=== PATIENT | female | born 1985 | race African-American/Black ===

== ENCOUNTER 2017-11-16 14:23 | Emergency (ER) | payer OTHER, SELFPAY ==
[2017-11-16 15:38] LABS: #Basophils 0.1 thou/uL (0.0-0.2); #Lymphocytes 2.4 thou/uL (1.20-3.40); #Monocytes 0.6 thou/uL (0.11-0.59); #Neutrophils 3.5 thou/uL (1.40-6.50); %Basophils 1.6 % (0.0-1.0); %Eosinophils 0.5 % (0.0-10.0); %Lymphocytes 36.2 % (21.0-51.0); %Monocytes 8.6 % (0.0-10.0); Hemoglobin 10.8 g/dL (12.0-16.0); Mean Corpuscular HGB CONC 32.8 g/dL (32.0-36.0); Mean Corpuscular Hemoglobin 25.8 pg (27.0-31.0); Mean Corpuscular Volume 78.4 fL (78.0-98.0); Mean Platelet Volume 7.5 fL (7.4-10.4); Platelet Count 399 thou/uL (130-400); White Blood Cell (WBC) Count 6.6 thou/uL (4.8-10.8)
[2017-11-16 16:05] LABS: ALT (SGPT) 9 U/L (8-55); AST (SGOT) 16 U/L (5-34); Albumin 4.5 g/dL (3.5-5.0); Alkaline Phosphatase 57 U/L (40-150); Anion Gap 12 mmol/L (10-20); BUN (Urea Nitrogen) 14 mg/dL (7.0-18.7); Bilirubin, Total 0.9 mg/dL (0.2-1.2); Calc. Creatinine Clearance 0 mL/min (70-130); Calcium 9.7 mg/dL (7.8-10.44); Carbon Dioxide 25 mmol/L (22-29); Chloride 104 mmol/L (98-107); Estimated GFR-MDRD Greater than 90; Globulin 3.9 g/dL (2.4-3.5); Glucose 86 mg/dL (70-105); Potassium 3.8 mmol/L (3.5-5.1); Protein, Total 8.4 g/dL (6.0-8.3); Sodium 137 mmol/L (136-145)
[2017-11-16] MEDS ORDERED: Ibuprofen 800 MG TAB ONE (16:19)
[2017-11-16 16:42] LABS: Bilirubin Negative (Negative); Blood, Urine Large (Negative); Clarity CLOUDY (Clear); Glucose, Urine (Dipstick) Negative (Negative); Leukocyte Small (Negative); Nitrite Negative (Negative); Protein, Urine (Dipstick) Negative (Neg-Trace)
[2017-11-16 16:44] LABS: Bacteria/HPF 4+ HPF (None Seen); Hyaline Casts/LPF 0-3 HYALINE CAST LPF (0-3 Hyaline); Pathc Cast-AUWi Flag 0.58 (0-2.49); RBC/HPF GREATER THAN 50-TNTC HPF (0-3); WBC/HPF 0-3 HPF (0-3)
--- NOTE | 2017-11-16 18:07 | ULT ---
PELVIC ULTRASOUND: HISTORY: The patient is reportedly and is bleeding. No hCG available at the time of this exam. FINDINGS: Real-time imaging of the pelvis was obtained transabdominally and showed a uterus measuring 4.7 x 5.9 x 7.8 cm. The endometrium is thickened at 1.6 cm. The right and left adnexa show small follicles. No free fluid. On Doppler evaluation with spectral analysis, normal flow is shown to both adnexa. IMPRESSION: No signs of intrauterine or ectopic . This does not exclude an ectopic or early intrauterin e. The endometrium does appear thickened. POS: [facility]
== END 2017-11-16 17:00 | disposition home or self-care (01) ==
LOC: ERS 14:23
DX: N30.00 Acute cystitis without hematuria (principal); R51 Headache; D64.9 Anemia, unspecified; F31.9 Bipolar disorder, unspecified; Z85.42 Personal history of malignant neoplasm of other parts of uterus
CPT/HCPCS: 36415; 76856; 80053; 81003; 81015; 84702; 85025; 87077; 87086; 87186

== ENCOUNTER 2018-02-10 19:05 | Emergency (ER) | payer SELFPAY ==
[2018-02-10 20:10] LABS: Pregnancy Test - Urine (BHCG) Negative (Negative); Pregu Control Background? CLEAR/WHITE (CLR/WHITE); Pregu Control Bar Appear? YES (CONTROL BAR); Specific Gravity 1.013 (1.002-1.036)
[2018-02-10] MEDS ORDERED: Ketorolac Tromethamine 30 MG/ML VIAL ONE (20:48)
--- NOTE | 2018-02-10 20:48 | ULT ---
LIMITED RIGHT BREAST ULTRASOUND: 02/10/18 PROVIDED CLINICAL HISTORY: Right breast palpable abnormality. FINDINGS: Limited sonographic interrogation of the right breast in the 1 o'clock position in the region of palp able concern was performed. There is no evidence for a cystic or solid mass in the region of palpable concern. IMPRESSION: No sonographic abnormality is evident in the region of palpable concern. Negative sonographic finding s should not preclude further evaluation of a clinically suspicious area. Followup diagnostic mammogr aphy should be considered. POS: [facility]
== END 2018-02-10 21:28 | disposition home or self-care (01) ==
LOC: ERS 19:05
DX: N64.4 Mastodynia (principal); F31.9 Bipolar disorder, unspecified
CPT/HCPCS: 76641; 81025; 96372; J1885

== ENCOUNTER 2018-04-07 11:56 | Emergency (ER) | payer SELFPAY ==
[~2018-04-07 11:56] MED LIST: ISOVUE-370 76%-LOCM 1 ML ONE
[2018-04-07] MEDS ORDERED: Acetaminophen 500 MG TAB ONE (13:03)
[2018-04-07] MEDS ORDERED: Metoclopramide HCl 10 MG/2 ML VIAL ONE (13:03)
[2018-04-07] MEDS ORDERED: diphenhydrAMINE 50 MG/ML VIAL ONE (13:03)
[2018-04-07 13:27] LABS: #Basophils 0.1 thou/uL (0.0-0.2); #Lymphocytes 2.6 thou/uL (1.20-3.40); #Monocytes 0.4 thou/uL (0.11-0.59); #Neutrophils 2.6 thou/uL (1.40-6.50); %Basophils 1.8 % (0.0-1.0); %Eosinophils 0.6 % (0.0-10.0); %Lymphocytes 45.3 % (21.0-51.0); %Neutrophils 45.3 % (42.0-75.0); Hemoglobin 9.2 g/dL (12.0-16.0); Mean Corpuscular HGB CONC 31.8 g/dL (32.0-36.0); Mean Corpuscular Hemoglobin 23.9 pg (27.0-31.0); Mean Corpuscular Volume 75.4 fL (78.0-98.0); Mean Platelet Volume 7.3 fL (7.4-10.4); Platelet Count 353 thou/uL (130-400); RBC Distribution Width 16.3 % (11.5-14.5); Red Blood Cell (RBC) Count 3.84 mill/uL (4.20-5.40); White Blood Cell (WBC) Count 5.8 thou/uL (4.8-10.8)
[2018-04-07 13:46] LABS: ALT (SGPT) 11 U/L (8-55); AST (SGOT) 18 U/L (5-34); Albumin 4.3 g/dL (3.5-5.0); Alkaline Phosphatase 44 U/L (40-150); Anion Gap 8 mmol/L (10-20); BUN (Urea Nitrogen) 10 mg/dL (7.0-18.7); Bilirubin, Total 0.7 mg/dL (0.2-1.2); CRP (Inflammatory) Less than 0.50 mg/dL (= or < 0.5); Calc. Creatinine Clearance 0 mL/min (70-130); Calcium 9.7 mg/dL (7.8-10.44); Carbon Dioxide 30 mmol/L (22-29); Chloride 103 mmol/L (98-107); Estimated GFR-MDRD Greater than 90; Globulin 3.4 g/dL (2.4-3.5); Glucose 94 mg/dL (70-105); Potassium 3.5 mmol/L (3.5-5.1); Protein, Total 7.7 g/dL (6.0-8.3); Sodium 137 mmol/L (136-145)
[2018-04-07] MEDS ORDERED: Dexamethasone 10 MG/ML VIAL ONE (14:53)
--- NOTE | 2018-04-07 14:58 | CT ---
CT BRAIN WITHOUT CONTRAST CT ANGIOGRAM HEAD WITH CONTRAST: Date: 04/07/18 HISTORY: Headaches. TIA. COMPARISON: none. FINDINGS: CT BRAIN: No acute hemorrhage or infarct. No midline shift or mass effect. Ventricular size and extra-axial CSF spaces are normal. Calvarium is intact. Paranasal sinuses and mastoids are clear. IMPRESSION: Normal CT examination of the brain. CT ANGIO HEAD: CT angiogram of head was performed after the intravenous administration of contrast. 3D rendering pro vided. [place] is patent. No stenosis, thrombosis, nor aneurysmal formation. Exam is slightly limit ed due to the delayed phase of contrast for which it was performed. IMPRESSION: Normal CT angiogram of head. POS: [facility]
[2018-04-07 15:27] LABS: BHCG - Serum Negative (NEGATIVE); Pregs Control Background? CLEAR/WHITE (CLR/WHITE); Pregs Control Bar Appear? YES (CONTROL BAR)
== END 2018-04-07 15:41 | disposition home or self-care (01) ==
LOC: ERS 11:56
DX: G43.909 Migraine, unspecified, not intractable, without status migrainosus (principal); D64.9 Anemia, unspecified; F32.9 Major depressive disorder, single episode, unspecified; Z79.899 Other long term (current) drug therapy
CPT/HCPCS: 36415; 70496; 80053; 84703; 85025; 85652; 86140; 96365; 96375; J1100; J1200; J2765; Q9966

== ENCOUNTER 2018-06-06 09:00 | Emergency (ER) | payer SELFPAY ==
[2018-06-06] MEDS ORDERED: Ketorolac Tromethamine 60 MG/2 ML VIAL ONE (09:57)
[2018-06-06] MEDS ORDERED: Acetaminophen 500 MG TAB ONE (09:57)
[2018-06-06] MEDS ORDERED: Dexamethasone 10 MG/ML VIAL ONE (09:57)
== END 2018-06-06 10:25 | disposition home or self-care (01) ==
LOC: ERS 09:00
DX: M62.838 Other muscle spasm (principal); G43.909 Migraine, unspecified, not intractable, without status migrainosus; D64.9 Anemia, unspecified; F32.9 Major depressive disorder, single episode, unspecified
CPT/HCPCS: 96372; J1100; J1885

== ENCOUNTER 2018-06-29 17:45 | Emergency (ER) | payer SELFPAY ==
[2018-06-29] MEDS ORDERED: Diazepam 5 MG TAB ONE (18:22)
[2018-06-29] MEDS ORDERED: Ibuprofen 800 MG TAB ONE (18:22)
--- NOTE | 2018-06-29 18:35 | RAD ---
XR Shoulder Lt 3 View STANDARD History: [Injury] Comparison: Radiograph 2018 Findings: There is no acute fracture or malalignment. Visualized ribs are normal. Soft tissues are un remarkable. Impression: Normal examination of the left shoulder.
== END 2018-06-29 18:55 | disposition home or self-care (01) ==
LOC: ERS 17:45
DX: S40.012A Contusion of left shoulder, initial encounter (principal); G43.909 Migraine, unspecified, not intractable, without status migrainosus; F32.9 Major depressive disorder, single episode, unspecified; D64.9 Anemia, unspecified; V89.2XXA Person injured in unspecified motor-vehicle accident, traffic, initial encounter

== ENCOUNTER 2018-09-01 19:58 | Emergency (ER) | payer OTHER, SELFPAY ==
[2018-09-01] MEDS ORDERED: diphenhydrAMINE 25 MG CAP ONE (20:29)
[2018-09-01] MEDS ORDERED: Metoclopramide HCl 10 MG/2 ML VIAL ONE (20:30)
[2018-09-01] MEDS ORDERED: diphenhydrAMINE 50 MG/ML VIAL ONE (20:31)
== END 2018-09-01 22:00 | disposition home or self-care (01) ==
LOC: ERS 19:58
DX: G43.909 Migraine, unspecified, not intractable, without status migrainosus (principal); F32.9 Major depressive disorder, single episode, unspecified
CPT/HCPCS: 96365; 96375; J1200; J2765; Q0163

== ENCOUNTER 2018-10-09 10:14 | Emergency (ER) | payer SELFPAY ==
[2018-10-09 11:10] LABS: #Neutrophils 3.1 thou/uL (1.40-6.50); %Basophils 0.9 % (0.0-1.0); %Eosinophils 0.4 % (0.0-10.0); %Monocytes 6.5 % (0.0-10.0); %Neutrophils 52.2 % (42.0-75.0); Hemoglobin 8.8 g/dL (12.0-16.0); Mean Corpuscular Volume 69.5 fL (78.0-98.0); Mean Platelet Volume 8.4 fL (7.4-10.4); Platelet Count 314 thou/uL (130-400); RBC Distribution Width 15.9 % (11.5-14.5); Red Blood Cell (RBC) Count 3.82 mill/uL (4.20-5.40)
[2018-10-09 11:11] LABS: #Basophils 0.1 thou/uL (0.0-0.2); #Lymphocytes 2.4 thou/uL (1.20-3.40); #Monocytes 0.4 thou/uL (0.11-0.59)
[2018-10-09 11:17] LABS: ALT (SGPT) 7 U/L (8-55); AST (SGOT) 14 U/L (5-34); Albumin 4.2 g/dL (3.5-5.0); Alkaline Phosphatase 50 U/L (40-150); Anion Gap 12 mmol/L (10-20); BUN (Urea Nitrogen) 8 mg/dL (7.0-18.7); Bilirubin, Total 0.7 mg/dL (0.2-1.2); Calc. Creatinine Clearance 0 mL/min (70-130); Calcium 9.6 mg/dL (7.8-10.44); Carbon Dioxide 22 mmol/L (22-29); Chloride 105 mmol/L (98-107); Estimated GFR-MDRD Greater than 90; Glucose 96 mg/dL (70-105); Lipase 28 U/L (8-78); Potassium 3.6 mmol/L (3.5-5.1); Protein, Total 7.2 g/dL (6.0-8.3); Sodium 135 mmol/L (136-145)
[2018-10-09 11:39] LABS: Eosinophils 1 % (0-10); Hypochromia SLIGHT = 6-15 cells (100X) (0-5/hpf); Lymphocytes 46 % (21-51); MDiff Complete? YES; Microcytosis MODERATE=15-30 cells (100X) (0-5/hpf); Monocytes 6 % (0-10); Neutrophil 47 % (42-75); Platelet Morphology Comment Appears Adequate; Polychromasia SLIGHT = 2-3 cells (100X) (0-2/hpf)
[2018-10-09 12:00] LABS: Bilirubin Negative (Negative); Blood, Urine Negative (Negative); Clarity Clear (Clear); Glucose, Urine (Dipstick) Normal (Negative); Leukocyte Negative Leu/uL (Negative); Nitrite Negative (Negative); Protein, Urine (Dipstick) Negative (Neg-Trace); Urobilinogen Normal mg/dL (Less than 2)
[2018-10-09 12:04] LABS: Pregnancy Test - Urine (BHCG) Negative (Negative); Pregu Control Background? CLEAR/WHITE (CLR/WHITE); Pregu Control Bar Appear? YES (CONTROL BAR); Specific Gravity 1.007 (1.002-1.036)
[2018-10-09] MEDS ORDERED: Magnesium Citrate 300 ML BOT ONE (12:08)
== END 2018-10-09 12:24 | disposition home or self-care (01) ==
LOC: ERS 10:14
DX: K59.00 Constipation, unspecified (principal); D64.9 Anemia, unspecified; G43.909 Migraine, unspecified, not intractable, without status migrainosus; F32.9 Major depressive disorder, single episode, unspecified
CPT/HCPCS: 36415; 80053; 81003; 81025; 83690; 85025; 99284

== ENCOUNTER 2018-10-13 09:52 | Emergency (ER) | payer SELFPAY ==
[2018-10-13 11:35] LABS: Hemoglobin 9.9 g/dL (12.0-16.0); Mean Corpuscular HGB CONC 32.1 g/dL (32.0-36.0); Mean Corpuscular Volume 71.6 fL (78.0-98.0); Mean Platelet Volume 8.6 fL (7.4-10.4); Platelet Count 370 thou/uL (130-400); RBC Distribution Width 16.6 % (11.5-14.5); Red Blood Cell (RBC) Count 4.32 mill/uL (4.20-5.40); White Blood Cell (WBC) Count 6.4 thou/uL (4.8-10.8)
[2018-10-13 11:57] LABS: BHCG - Serum Negative (NEGATIVE); Pregs Control Background? CLEAR/WHITE (CLR/WHITE); Pregs Control Bar Appear? YES (CONTROL BAR)
[2018-10-13 11:57] LABS: Band 2 % (5-11); Eosinophils 1 % (0-10); Lymphocytes 37 % (21-51); MDiff Complete? YES; Monocytes 5 % (0-10); Neutrophil 55 % (42-75)
[2018-10-13 12:02] LABS: ALT (SGPT) 9 U/L (8-55); AST (SGOT) 22 U/L (5-34); Albumin 4.2 g/dL (3.5-5.0); Alkaline Phosphatase 53 U/L (40-150); Anion Gap 13 mmol/L (10-20); BUN (Urea Nitrogen) 8 mg/dL (7.0-18.7); Bilirubin, Total 0.3 mg/dL (0.2-1.2); Calc. Creatinine Clearance 0 mL/min (70-130); Calcium 9.5 mg/dL (7.8-10.44); Carbon Dioxide 21 mmol/L (22-29); Chloride 105 mmol/L (98-107); Estimated GFR-MDRD Greater than 90; Globulin 3.8 g/dL (2.4-3.5); Glucose 95 mg/dL (70-105); Potassium 3.8 mmol/L (3.5-5.1); Sodium 135 mmol/L (136-145)
--- NOTE | 2018-10-13 12:19 | CT ---
CT OF THE ABDOMEN AND PELVIS WITHOUT IV CONTRAST INDICATION: Abdominal Pain COMPARISON: None FINDINGS: The lack of IV contrast limits evaluation of the solid organs of the abdomen and pelvis. ABDOMEN: Lung bases: Clear Liver: No focal lesion. Gallbladder: Normal appearing. Pancreas: Normal. Adrenal glands: Normal. Spleen: Normal. Kidneys: Normal. Retroperitoneum of the upper abdomen: No lymphadenopathy or free fluid is identified. Additional findings: None. Pelvis: Small and large bowel: Normal Bladder: Normal. Rectal and perirectal soft tissues:Normal. Reproductive structures: There is some mild thickening of the endometrial stripe which may be related to phase of menstruation. Recommend correlation. Free fluid in pelvis: No free fluid is evident. Lymphadenopathy pelvis: No lymphadenopathy is evident. Osseous structures: No acute osseous abnormality. No destructive osteolytic or osteoblastic lesion i s identified. IMPRESSION: 1. No acute abnormality within the limitations of this noncontrast exam. No renal or ureteral calculu s demonstrated.
== END 2018-10-13 12:57 | disposition home or self-care (01) ==
LOC: ERS 09:52
DX: K64.9 Unspecified hemorrhoids (principal); K62.5 Hemorrhage of anus and rectum
CPT/HCPCS: 36415; 74176; 80053; 84703; 85025

== ENCOUNTER 2018-11-18 09:51 | Emergency (ER) | payer MEDICAID | END 2018-11-18 10:47 | disposition home or self-care (01) | LOC: ERS 09:51 | DX: O99.89 Other specified diseases and conditions complicating pregnancy, childbirth and the puerperium (principal); H72.91 Unspecified perforation of tympanic membrane, right ear; O99.351 Diseases of the nervous system complicating pregnancy, first trimester; G43.909 Migraine, unspecified, not intractable, without status migrainosus; O99.011 Anemia complicating pregnancy, first trimester; D64.9 Anemia, unspecified; O99.341 Other mental disorders complicating pregnancy, first trimester; F32.9 Major depressive disorder, single episode, unspecified; Z85.42 Personal history of malignant neoplasm of other parts of uterus; Z3A.01 Less than 8 weeks gestation of pregnancy | CPT/HCPCS: 99282 ==

== ENCOUNTER 2018-12-23 07:10 | Day surgery (SDC) | payer OTHER ==
[2018-12-22 15:46] VITALS: BMI 20.3
[2018-12-23] MEDS ORDERED: Ciprofloxacin 0.2% Otic 1 DROP CON ONE ×2 (10:26→11:20)
[2018-12-23] MEDS ORDERED: Bacitracin Zinc Ointment 30 gm TUBE ONE (10:26)
[2018-12-23] MEDS ORDERED: Lidocaine 1% w/Epinephrine 1:100K 20 ML VIAL ONE (10:26)
[2018-12-23] MEDS ORDERED: Fentanyl 100 MCG/2 ML VIAL ONE (10:29)
[2018-12-23] MEDS ORDERED: Midazolam HCl 2 mg/2 ml Vial ONE (10:29)
[2018-12-23] MEDS ORDERED: Clindamycin/D5W 900 mg/50 ml Premix Bag ONE (10:52)
[2018-12-23] MEDS ORDERED: Gelfilm 1 EA Packet ONE (11:15)
[2018-12-23] MEDS ORDERED: Rocuronium Bromide 10 MG/ML (10ML VIAL) ONE (11:30)
[2018-12-23] MEDS ORDERED: Ondansetron PF 4 MG/2 ML Vial ONE (11:30)
[2018-12-23] MEDS ORDERED: Succinylcholine Chloride 20 MG/ML 10 ml SYRINGE FS ONE (11:30)
[2018-12-23] MEDS ORDERED: PROPOFOL 200 MG/20 ML VIAL ONE (11:30)
[2018-12-23] MEDS ORDERED: Dexamethasone 20 MG/5 ML VIAL ONE (11:30)
[2018-12-23] MEDS ORDERED: Lidocaine 1% PF 5 ML VIAL ONE (11:30)
[2018-12-23] MEDS ORDERED: Hydrocodone-Acetamin 15 ML UDCUP ONE (13:13)
--- NOTE | 2018-12-24 12:57 | OP ---
DATE OF PROCEDURE: 12/23/2018 PREOPERATIVE DIAGNOSES: 1. Right tympanic membrane perforation. 2. Right conductive hearing loss. POSTOPERATIVE DIAGNOSES: 1. Right tympanic membrane perforation. 2. Right conductive hearing loss. PROCEDURE PERFORMED: Right tympanoplasty without ossicular chain reconstruction. ESTIMATED BLOOD LOSS: 10 mL. COMPLICATIONS: None. ANESTHESIA: GETA. DESCRIPTION OF PROCEDURE: The patient was taken to the operating room and placed supine on the table. General endotracheal anesthesia was obtained by the anesthesia staff. Tube was secured in the left lower lip. A shoulder roll was placed. The head was gently turned exposing the right ear. Following this, 8 mL of 1% lidocaine with 1:100,000 epinephrine was injected into the postauricular sulcus and the external auditory canal as well as the temporalis muscle and overlying tissues. Following this, the patient was prepped and draped in standard surgical fashion. Operating microscope was brought into the field, and the tympanic membrane perforation was visualized first. The middle ear mucosa was noted to be healthy today. There was a near complete perforation of the tympanic membrane present. The edges of the perforation were further rimmed using a Grady needle and cupped forceps. The annulus was markedly atrophic as well. Following this, postauricular incision was made and dissection was carried overlying the temporalis fascia. A 2 x 2 cm piece of temporalis fascia was harvested and was cleaned of excessive fat muscle debris and was depressed and allowed to dry for approximately 15 minutes. Following this, a tympanomastoid flap were elevated using the Bovie electrocautery and the periosteal elevator and [place] elevator. Dissection was then carried down the external auditory canal medially, and then an incision was made in the external auditory canal again approximately 1 cm from the annulus. Following this, the annulus was identified and was elevated using a round knife and Grady needle. The chorda tympani nerve was retracted above and was from the annulus. Following this, small piece of Gelfilm was placed onto the middle ear promontory. Palpation of the ossicular chain showed movement of the ossicular chain, and Gelfoam packing was placed medially to the tympanic membrane. The temporalis fascia was trimmed to the appropriate size and then was placed in a medial onlay fashion covering the tympanic membrane perforation. Following this, the temporalis fascia graft and the tympanic membrane were returned to its normal anatomic position and Gelfoam was packed lateral to the graft and tympanic membrane. Following this, the tympanomeatal flap was reapproximated to its normal position. Monocryl stitches were used to close the mastoid fascia as well as the subcutaneous fascia and Dermabond was placed on the skin. The cotton ball was placed in the external auditory canal, and Gelfoam packs were placed overlying the tympanomeatal flap. The patient tolerated the procedure well. Job ID: [id number]
== END 2018-12-23 14:15 | disposition home or self-care (01) ==
LOC: SDC 07:10
PROVIDERS: ATTEND Otolaryngology Plastic Surgery within the Head & Neck
PROC: 09U707Z Supplement Right Tympanic Membrane with Autologous Tissue Substitute, Open Approach (ICD-10-PCS; principal; 2018-12-23)
DX: H72.91 Unspecified perforation of tympanic membrane, right ear (principal); H90.11 Conductive hearing loss, unilateral, right ear, with unrestricted hearing on the contralateral side; Z79.899 Other long term (current) drug therapy; Z88.0 Allergy status to penicillin
CPT/HCPCS: 85014; J1100; J2001; J2250; J2405; J2704; J3010; J3490

== ENCOUNTER 2019-02-05 23:44 | Emergency (ER) | payer MEDICAID | END 2019-02-06 00:23 | disposition home or self-care (01) | LOC: ERS 23:44 | DX: S09.21XA Traumatic rupture of right ear drum, initial encounter (principal); G43.909 Migraine, unspecified, not intractable, without status migrainosus; D64.9 Anemia, unspecified; F32.9 Major depressive disorder, single episode, unspecified; Z79.899 Other long term (current) drug therapy; X58.XXXA Exposure to other specified factors, initial encounter | CPT/HCPCS: 99283 ==

== ENCOUNTER 2019-05-17 10:33 | Emergency (ER) | payer BC, MEDICAID | END 2019-05-17 12:25 | disposition home or self-care (01) | LOC: ERS 10:33 | DX: B34.9 Viral infection, unspecified (principal); G43.909 Migraine, unspecified, not intractable, without status migrainosus; D64.9 Anemia, unspecified; F32.9 Major depressive disorder, single episode, unspecified | CPT/HCPCS: 87804; 99283 ==

== ENCOUNTER 2019-05-18 15:48 | Emergency (ER) | payer BC, OTHER | END 2019-05-18 17:14 | disposition home or self-care (01) | LOC: ERS 15:48 | DX: J06.9 Acute upper respiratory infection, unspecified (principal); H66.91 Otitis media, unspecified, right ear; H61.21 Impacted cerumen, right ear; G43.909 Migraine, unspecified, not intractable, without status migrainosus; D64.9 Anemia, unspecified; F32.9 Major depressive disorder, single episode, unspecified | CPT/HCPCS: 87081; 87430; 99283 ==

== ENCOUNTER 2019-06-14 17:01 | Emergency (ER) | payer BC, SELFPAY ==
--- NOTE | 2019-06-14 17:28 | RAD ---
THREE VIEWS RIGHT ANKLE: Comparison: None. History: Fall down stairs yesterday with right ankle pain. FINDINGS: Three views of the right ankle shows no evidence of acute fracture or dislocation. No soft tissue swe lling is seen. No degenerative changes are present. IMPRESSION: No evidence of acute osseous abnormality. POS: [facility]
--- NOTE | 2019-06-14 19:30 | RAD ---
THREE VIEWS RIGHT FOOT: History: Right foot pain. FINDINGS: Three views of the right foot shows no evidence of acute fracture or dislocation. No soft tissue swel ling is seen. No degenerative changes are present. IMPRESSION: NO evidence of acute osseous abnormality. POS: [facility]
[2019-06-14] MEDS ORDERED: Ibuprofen 800 MG TAB ONE (20:21)
== END 2019-06-14 18:10 | disposition home or self-care (01) ==
LOC: ERS 17:01
DX: S90.31XA Contusion of right foot, initial encounter (principal); D64.9 Anemia, unspecified; F32.9 Major depressive disorder, single episode, unspecified; W10.9XXA Fall (on) (from) unspecified stairs and steps, initial encounter

== ENCOUNTER 2019-08-31 13:13 | Emergency (ER) | payer SELFPAY | END 2019-08-31 14:31 | disposition left against medical advice (07) | LOC: ERS 13:13 | DX: Z53.21 Procedure and treatment not carried out due to patient leaving prior to being seen by health care provider (principal) ==

== ENCOUNTER 2019-10-19 12:49 | Emergency (ER) | payer OTHER, SELFPAY ==
[2019-10-19] MEDS ORDERED: Metoclopramide 10 MG/10 ML UDCUP ONE (13:46)
[2019-10-19] MEDS ORDERED: Ketorolac Tromethamine 30 MG/ML VIAL ONE (13:46)
[2019-10-19] MEDS ORDERED: Metoclopramide HCl 10 MG/2 ML VIAL ONE (13:47)
[2019-10-19 13:48] LABS: #Eosinphils 0.1 thou/uL (0.0-0.7); #Lymphocytes 2.6 thou/uL (1.20-3.40); #Monocytes 0.4 thou/uL (0.11-0.59); %Basophils 0.7 % (0.0-1.0); %Eosinophils 0.7 % (0.0-10.0); %Lymphocytes 36.6 % (21.0-51.0); %Monocytes 5.8 % (0.0-10.0); %Neutrophils 56.1 % (42.0-75.0); Hemoglobin 11.3 g/dL (12.0-16.0); Mean Corpuscular HGB CONC 33.3 g/dL (32.0-36.0); Mean Corpuscular Hemoglobin 26.2 pg (27.0-31.0); Mean Corpuscular Volume 78.6 fL (78.0-98.0); Mean Platelet Volume 7.8 fL (7.4-10.4); Platelet Count 342 thou/uL (130-400); RBC Distribution Width 13.8 % (11.5-14.5); Red Blood Cell (RBC) Count 4.31 mill/uL (4.20-5.40); White Blood Cell (WBC) Count 7.2 thou/uL (4.8-10.8)
[2019-10-19 14:06] LABS: ALT (SGPT) 10 U/L (8-55); AST (SGOT) 17 U/L (5-34); Albumin 4.1 g/dL (3.5-5.0); Alkaline Phosphatase 63 U/L (40-110); Anion Gap 12 mmol/L (10-20); BUN (Urea Nitrogen) 8 mg/dL (7.0-18.7); Bilirubin, Total 0.6 mg/dL (0.2-1.2); Calc. Creatinine Clearance 0 mL/min (70-130); Calcium 8.7 mg/dL (7.8-10.44); Carbon Dioxide 27 mmol/L (22-29); Chloride 101 mmol/L (98-107); Estimated GFR-MDRD Greater than 90; Globulin 3.6 g/dL (2.4-3.5); Glucose 96 mg/dL (70-105); Potassium 3.5 mmol/L (3.5-5.1); Protein, Total 7.7 g/dL (6.0-8.3); Sodium 136 mmol/L (136-145)
[2019-10-19 14:17] LABS: Bacteria/HPF None Seen HPF (None Seen); Bilirubin Negative (Negative); Blood, Urine 2+ (Negative); Clarity Clear (Clear); Glucose, Urine (Dipstick) Normal (Negative); Ketone, Urine Negative (Negative); Leukocyte Negative Leu/uL (Negative); Nitrite Negative (Negative); Protein, Urine (Dipstick) Negative (Neg-Trace); RBC/HPF 0-3 HPF (0-3); Specific Gravity, Urine 1.009 (1.002-1.036); Squamous Epithelial 0-3 HPF (0-3); Urobilinogen Normal mg/dL (Less than 2); WBC/HPF 0-3 HPF (0-3); pH, Urine 7.5 (5.0-9.0)
== END 2019-10-19 15:25 | disposition home or self-care (01) ==
LOC: ERS 12:49
DX: R51 Headache (principal); N93.9 Abnormal uterine and vaginal bleeding, unspecified
CPT/HCPCS: 36415; 80053; 81003; 81015; 84702; 85025; 86850; 86870; 86900; 86901; 96365; 96375; J1885; J2765

== ENCOUNTER 2019-12-27 19:53 | Emergency (ER) | payer OTHER ==
[2019-12-27] MEDS ORDERED: Ibuprofen 200 MG TAB ONE (21:11)
== END 2019-12-27 21:28 | disposition home or self-care (01) ==
LOC: ERS 19:53
DX: H65.91 Unspecified nonsuppurative otitis media, right ear (principal); R51.9 Headache, unspecified
CPT/HCPCS: 99283

== ENCOUNTER 2020-03-29 16:15 | Emergency (ER) | payer OTHER | END 2020-03-29 17:56 | disposition home or self-care (01) | LOC: ERS 16:15 | DX: N64.52 Nipple discharge (principal) | CPT/HCPCS: 99283 ==

== ENCOUNTER 2020-04-04 17:34 | Emergency (ER) | payer OTHER ==
[2020-04-04] MEDS ORDERED: Ibuprofen 800 MG TAB ONE (19:53)
== END 2020-04-04 19:50 | disposition home or self-care (01) ==
LOC: ERS 17:34
DX: N64.4 Mastodynia (principal)
CPT/HCPCS: 99283

== ENCOUNTER 2020-04-07 09:43 | Outpatient (CLI) | payer OTHER | END 2020-04-07 09:44 | disposition home or self-care (01) | LOC: BICMAMMO 09:43 | PROVIDERS: ATTEND Family Medicine | DX: N64.52 Nipple discharge (principal) | CPT/HCPCS: 77066; G0279 ==

== ENCOUNTER 2020-05-02 08:49 | Emergency (ER) | payer OTHER | END 2020-05-02 10:20 | disposition home or self-care (01) | LOC: ERS 08:49 | DX: R59.0 Localized enlarged lymph nodes (principal) | CPT/HCPCS: 99281 ==

== ENCOUNTER 2020-05-09 09:13 | Emergency (ER) | payer OTHER ==
[2020-05-09] MEDS ORDERED: Lorazepam 2 MG/ML VIAL ONE (10:26)
[2020-05-09] MEDS ORDERED: Lidocaine 4% Topical Sol 50 ML BOT ONE (10:28)
[2020-05-09] MEDS ORDERED: Lidocaine 1% (PF) 30 ML VIAL ONE (10:29)
[2020-05-09] MEDS ORDERED: Boostrix 0.5 ML (Tdap) VIAL ONE (11:01)
== END 2020-05-09 11:31 | disposition home or self-care (01) ==
LOC: ERS 09:13
DX: N76.4 Abscess of vulva (principal)
CPT/HCPCS: 56405; 90471; 90715; 96374; J2001; J2060

== ENCOUNTER 2020-07-25 09:58 | Emergency (ER) | payer OTHER ==
[2020-07-25] MEDS ORDERED: Ibuprofen 200 MG TAB ONE (11:38)
== END 2020-07-25 12:30 | disposition home or self-care (01) ==
LOC: ERS 09:58
DX: S69.92XA Unspecified injury of left wrist, hand and finger(s), initial encounter (principal); W23.0XXA Caught, crushed, jammed, or pinched between moving objects, initial encounter

== ENCOUNTER 2020-10-27 10:23 | Emergency (ER) | payer OTHER | END 2020-10-27 12:18 | disposition home or self-care (01) | LOC: ERS 10:23 | DX: K08.89 Other specified disorders of teeth and supporting structures (principal) | CPT/HCPCS: 99282 ==